=== PATIENT | female | born 1935 | race Caucasian/White ===

== ENCOUNTER 2017-01-11 18:06 | Emergency (ER) | payer OTHER, MEDICARE ==
--- NOTE | 2017-01-11 18:57 | ED CLINICAL REPORT ---
Clinical Report - Physicians/Mid Levels [facility] [address] [place] [address] 01/11/2017 18:08 Patient: SANA GERMAN *This is a preliminary document and is subject to change Time Seen: 18:24; initial patient contact. Abhijeet Partida Dr.
--- NOTE | 2017-01-11 18:57 | ED ORDER SUMMARY ---
..... Patient: SANA GERMAN OrderSheet [facility] VisitID: [id number] [address] [address] 81y, F Registration Date/Time: 01/11/2017 ORDER SHEET Weight: 65.7 kg (stated) Allergies: Benadryl GENERAL ORDERS: MEDICATION ORDERS: Prednisone PO 40 mg (NOW) (18:38 01/11/2017 Chase Mustafa) (18:54 Isaiah RTangelaNTangela) IV FLUIDS: ORDER SHEET NOTES: This document has not been locked and should not be saved in the medical record.
--- NOTE | 2017-01-11 18:57 | ED CLINICAL REPORT ---
Clinical Report - Physicians/Mid Levels [facility] [address] [place] [address] 01/11/2017 18:08 Patient: SANA GERMAN *This is a preliminary document and is subject to change Time Seen: 18:24; initial patient contact. Abhijeet Partida Dr.
--- NOTE | 2017-01-11 18:57 | ED NURSING NOTES ---
Clinical Report - Nurses [facility] [address] [place] [address] 01/11/2017 18:08 Patient: SANA GERMAN TRIAGE Triage time 18:23. Acuity: LEVEL 4. Chief Complaint: POSSIBLE ALLERGIC REACTION, SKIN RASH, ITCHING and HIVES. --18:29 Chely Rubio R.N. 18:23 01/11/17. BP: 108/57. HR: 78. RR: 20. O2 saturation: 97%. Temp: 97.8 F. Pain level now: 01/31. --18:29 Chely Rubio R.N. Weight: 65.7 kg stated. Height/Length: 65.5 inches Per Patient. BMI: 23.8. --18:27 Chely Rubio R.N. Medications Levaquin (almost finished). --18:25 Chely Rubio R.N. Coumadin?. --18:25 Chely Rubio R.N. BP med doesn't know name. --18:26 Chely Rubio R.N. Allergies Benadryl. --18:24 Chely Rubio R.N. History Arrived by private vehicle. Historian: patient. Accompanied by family. Primary physician (Elisabet Fry in [place]). ( Pt lives with family in [place], is here visiting relatives here in [place]). This started today. Onset. (this morning). PAST MEDICAL HX: Immunizations: up-to-date. SOCIAL HX: Never smoker. No drug use. FUNCTIONAL ASSESSMENT: Functional assessment: no impairments noted. LEARNING NEEDS ASSESSMENT: The learning needs assessment revealed no barriers. --18:29 Chely Rubio R.N. PROBLEMS: Neck Pain. --18:26 Chely Rubio R.N. Hypertension. --18:28 Chely Rubio R.N. ADDITIONAL SURGERIES: Hysterectomy. --18:26 Chely Rubio R.N. Interventions ID band on patient. To room. --18:29 Chely Rubio R.N. PHYSICAL ASSESSMENT 18:29 01/11/17. Patient gowned. GENERAL / NEURO / PSYCH: Alert. Appears anxious. Oriented X 4. --18:29 Chely Rubio R.N. NURSING PROGRESS NOTES 18:29 01/11/17. Patient identifiers checked. Call light placed in reach. Bed placed in lowest position. Patient ready for evaluation- chart flagged. --18:29 Chely Rubio R.N. 18:54 01/11/2017 Prednisone PO 40 mg given. Allergies verified and confirmed 5 rights. --18:54 Kian Rivas R.N. DISPOSITION / DISCHARGE Departure time: 1914. The patient was discharged by the physician. She was discharged home and accompanied by family. She left the Emergency Department ambulatory and via private vehicle. Family member driving. ( Pt ambulated with assistance on discharge, family verbalized understanding of discharge instructions and follow up care.). --19:18 Kian Rivas R.N. 19:16 01/11/17. BP: 108/87. HR: 76. RR: 18. O2 saturation: 98%. Temp: 98.2 F. Pain level now 0/10. --19:18 Kian Rivas R.N. Locked/Released at 01/21/2017 9:00 by Stephanie Ortega R.N.
--- NOTE | 2017-01-11 18:57 | ED NURSING NOTES ---
Clinical Report - Nurses [facility] [address] [place] [address] 01/11/2017 18:08 Patient: SANA GERMAN TRIAGE Triage time 18:23. Acuity: LEVEL 4. Chief Complaint: POSSIBLE ALLERGIC REACTION, SKIN RASH, ITCHING and HIVES. --18:29 Chely Rubio R.N. 18:23 01/11/17. BP: 108/57. HR: 78. RR: 20. O2 saturation: 97%. Temp: 97.8 F. Pain level now: 01/31. --18:29 Chely Rubio R.N. Weight: 65.7 kg stated. Height/Length: 65.5 inches Per Patient. BMI: 23.8. --18:27 Chely Rubio R.N. Medications Levaquin (almost finished). --18:25 Chely Rubio R.N. Coumadin?. --18:25 Chely Rubio R.N. BP med doesn't know name. --18:26 Chely Rubio R.N. Allergies Benadryl. --18:24 Chely Rubio R.N. History Arrived by private vehicle. Historian: patient. Accompanied by family. Primary physician (Elisabet Fry in [place]). ( Pt lives with family in [place], is here visiting relatives here in [place]). This started today. Onset. (this morning). PAST MEDICAL HX: Immunizations: up-to-date. SOCIAL HX: Never smoker. No drug use. FUNCTIONAL ASSESSMENT: Functional assessment: no impairments noted. LEARNING NEEDS ASSESSMENT: The learning needs assessment revealed no barriers. --18:29 Chely Rubio R.N. PROBLEMS: Neck Pain. --18:26 Chely Rubio R.N. Hypertension. --18:28 Chely Rubio R.N. ADDITIONAL SURGERIES: Hysterectomy. --18:26 Chely Rubio R.N. Interventions ID band on patient. To room. --18:29 Chely Rubio R.N. PHYSICAL ASSESSMENT 18:29 01/11/17. Patient gowned. GENERAL / NEURO / PSYCH: Alert. Appears anxious. Oriented X 4. --18:29 Chely Rubio R.N. NURSING PROGRESS NOTES 18:29 01/11/17. Patient identifiers checked. Call light placed in reach. Bed placed in lowest position. Patient ready for evaluation- chart flagged. --18:29 Chely Rubio R.N. 18:54 01/11/2017 Prednisone PO 40 mg given. Allergies verified and confirmed 5 rights. --18:54 Kian Rivas R.N. DISPOSITION / DISCHARGE Departure time: 1914. The patient was discharged by the physician. She was discharged home and accompanied by family. She left the Emergency Department ambulatory and via private vehicle. Family member driving. ( Pt ambulated with assistance on discharge, family verbalized understanding of discharge instructions and follow up care.). --19:18 Kian Rivas R.N. 19:16 01/11/17. BP: 108/87. HR: 76. RR: 18. O2 saturation: 98%. Temp: 98.2 F. Pain level now 0/10. --19:18 Kian Rivas R.N. Locked/Released at 01/21/2017 9:00 by Stephanie Ortega R.N.
--- NOTE | 2017-01-11 18:57 | ED ORDER SUMMARY ---
..... Patient: SANA GERMAN OrderSheet [facility] VisitID: [id number] [address] [place] [address] 81y, F Registration Date/Time: 01/11/2017 ORDER SHEET Weight: 65.7 kg (stated) Allergies: Benadryl GENERAL ORDERS: MEDICATION ORDERS: Prednisone PO 40 mg (NOW) (18:38 01/11/2017 Cahse Mustafa) (18:54 Isaiah RTangelaNTangela) IV FLUIDS: ORDER SHEET NOTES: This document has not been locked and should not be saved in the medical record.
--- NOTE | 2017-01-21 09:00 | ED DISCHARGE INSTRUCTIONS ---
Patient: SAAN GERMAN General Instructions [facility] VisitID: [id number] [place] [address] 81y, F Registration Date/Time: 01/11/2017 Generalized drug rash due to oral macrolide. INSTRUCTIONS Your Current Medications: STOP TAKING THE FOLLOWING MEDICATIONS: Levaquin (almost finished)*. CONTINUE TAKING THE FOLLOWING MEDICATIONS: BP med doesn't know name*. Coumadin?*. Prescription Medications: Medrol Dosepak: take according to package directions. Dispense one (1) dosepak. No refill. Substitution is permissible. Follow-up: Follow up with your doctor in about two days. Call for an appointment. Blood pressure screening was not performed during this visit because the patient has an active diagnosis of hypertension. ADDITIONAL INFORMATION Drug Reaction: Allergic You are having an allergic reaction to a drug you have taken. This causes an itchy rash and sometimes swelling of various parts of the body. It may also cause trouble swallowing or breathing. The rash may take a few hours or up to two weeks to go away. In the future, remember to tell your doctor about your allergy to this drug so that drugs of this type won't be used again. Home Care: 1) Throw the drug away and do not take it again. The next reaction may be much worse. 2) Avoid tight clothing and anything that heats up your skin (hot showers/baths, direct sunlight) since heat will make itching worse. 3) An ice pack (ice cubes in a plastic bag, wrapped in a towel) will relieve local areas of intense itching and redness. Lanacaine cream or Solarcaine spray (or other product containing "benzocaine") will reduce the itching. 4) Avoid scratching which may worsen the reaction, damage your skin and lead to an infection. 5) Oral Benadryl (diphenhydramine) is an antihistamine available at drug and grocery stores. Unless a prescription antihistamine was given, Benadryl may be used to reduce itching if large areas of the skin are involved. Use lower doses during the daytime and higher doses at bedtime since the drug may make you sleepy. [NOTE: Do not use Benadryl if you have glaucoma or if you are a man with trouble urinating due to an enlarged prostate.] Claritin (loratadine) is an antihistamine that causes less drowsiness and is a good alternative for daytime use. Follow Up with your doctor or this facility in the next two days if your symptoms do not continue to improve. Get Prompt Medical Attention if any of the following occur: -- Wheezing, shortness of breath or difficulty swallowing -- Increased swelling in the face, eyelids, mouth, lips, tongue or throat -- Dizziness, weakness or fainting Methylprednisolone Oral tablet What is this medicine? METHYLPREDNISOLONE (meth ill pred NISS oh lone) is a corticosteroid. It is commonly used to treat inflammation of the skin, joints, lungs, and other organs. Common conditions treated include asthma, allergies, and arthritis. It is also used for other conditions, such as blood disorders and diseases of the adrenal glands. How should I use this medicine? Take this medicine by mouth with a drink of water. Follow the directions on the prescription label. Take it with food or milk to avoid stomach upset. If you are taking this medicine once a day, take it in the morning. Do not take more medicine than you are told to take. Do not suddenly stop taking your medicine because you may develop a severe reaction. Your doctor will tell you how much medicine to take. If your doctor wants you to stop the medicine, the dose may be slowly lowered over time to avoid any side effects. Talk to your geophysical laboratory chief regarding the use of this medicine in children. Special care may be needed. What side effects may I notice from receiving this medicine? Side effects that you should report to your doctor or health body care manager as soon as possible: allergic reactions like skin rash, itching or hives, swelling of the face, lips, or tongue eye pain, decreased or blurred vision, or bulging eyes fever, sore throat, sneezing, cough, or other signs of infection, wounds that will not heal increased thirst mental depression, mood swings, mistaken feelings of self importance or of being mistreated pain in hips, back, ribs, arms, shoulders, or legs swelling of the ankles, feet, hands trouble passing urine or change in the amount of urine Side effects that usually do not require medical attention (report to your doctor or health body care manager if they continue or are bothersome): confusion, excitement, restlessness headache nausea, vomiting skin problems, acne, thin and shiny skin weight gain What may interact with this medicine? Do not take this medicine with any of the following medications: mifepristone This medicine may also interact with the following medications: tacrolimus vaccines warfarin What if I miss a dose? If you miss a dose, take it as soon as you can. If it is almost time for your next dose, talk to your doctor or health body care manager. You may need to miss a dose or take an extra dose. Do not take double or extra doses without advice. Where should I keep my medicine? Keep out of the reach of children. Store at room temperature between 20 and 25 degrees C (68 and 77 degrees F). Throw away any unused medicine after the expiration date. What should I tell my health care provider before I take this medicine? They need to know if you have any of these conditions: Simin's syndrome diabetes glaucoma heart problems or disease high blood pressure infection such as herpes, measles, tuberculosis, or chickenpox kidney disease liver disease mental problems myasthenia gravis osteoporosis seizures stomach ulcer or intestine disease including colitis and diverticulitis thyroid problem an unusual or allergic reaction to lactose, methylprednisolone, other medicines, foods, dyes, or preservatives or trying to get breast-feeding What should I watch for while using this medicine? Visit your doctor or health body care manager for regular checks on your progress. If you are taking this medicine for a long time, carry an identification card with your name and address, the type and dose of your medicine, and your doctor's name and address. The medicine may increase your risk of getting an infection. Stay away from people who are sick. Tell your doctor or health body care manager if you are around anyone with measles or chickenpox. If you are going to have surgery, tell your doctor or health body care manager that you have taken this medicine within the last twelve months. Ask your doctor or health body care manager about your diet. You may need to lower the amount of salt you eat. The medicine can increase your blood sugar. If you are a diabetic check with your doctor if you need help adjusting the dose of your diabetic medicine. You have been given the following additional information: Allergic Reaction, Drug Methylprednisolone Oral tablet (Electronically signed by Abhijeet Partida Dr. 01/11/2017 21:38)
--- NOTE | 2017-01-21 09:00 | ED MED RECONCILIATION SUMMARY ---
Patient: SANA GERMAN Medication Reconciliation Report [facility] VisitID: [id number] [address] [place] [address] 81y, F Registration Date/Time: 01/11/2017 Weight: 65.7 kg Height/Length: 60 in. BMI: 23.8 ALLERGIES: Benadryl The patient's Home Medications are listed below: STOP TAKING THE FOLLOWING MEDICATIONS: Levaquin (almost finished) CONTINUE TAKING THE FOLLOWING MEDICATIONS: BP med doesn't know name Coumadin? The source(s) of the original Home Medication information: Not obtained. The following Medications were given to the patient in the Emergency Department: Prednisone [PO] PO 40 mg, administered: 01/11/2017 6:54:00 PM The following Medications were prescribed to the patient: Medrol Dosepak: take according to package directions. Dispense one (1) dosepak. No refill. Substitution is permissible. -- Abhijeet Partida Dr.
--- NOTE | 2017-01-21 09:00 | ED MAR SUMMARY ---
..... Medication Administration Record [facility] [address] [place] [address] Patient: SANA GERMAN Visit ID: [id number] 81y, F Weight: 65.7 kg Height/Length: 65.5 in BMI: 23.8 ALLERGIES: Benadryl Given 18:54 01/11/2017 Kian Rivas RShira Medication Administered: PREDNISONE [PO], Dose: 40 mg PO. Medication Ordered: Prednisone PO 40 mg (NOW).
--- NOTE | 2017-01-21 09:00 | ED DISCHARGE INSTRUCTIONS ---
Patient: SANA GERMAN General Instructions [facility] VisitID: [id number] [place] [address] 81y, F Registration Date/Time: 01/11/2017 Generalized drug rash due to oral macrolide. INSTRUCTIONS Your Current Medications: STOP TAKING THE FOLLOWING MEDICATIONS: Levaquin (almost finished)*. CONTINUE TAKING THE FOLLOWING MEDICATIONS: BP med doesn't know name*. Coumadin?*. Prescription Medications: Medrol Dosepak: take according to package directions. Dispense one (1) dosepak. No refill. Substitution is permissible. Follow-up: Follow up with your doctor in about two days. Call for an appointment. Blood pressure screening was not performed during this visit because the patient has an active diagnosis of hypertension. ADDITIONAL INFORMATION Drug Reaction: Allergic You are having an allergic reaction to a drug you have taken. This causes an itchy rash and sometimes swelling of various parts of the body. It may also cause trouble swallowing or breathing. The rash may take a few hours or up to two weeks to go away. In the future, remember to tell your doctor about your allergy to this drug so that drugs of this type won't be used again. Home Care: 1) Throw the drug away and do not take it again. The next reaction may be much worse. 2) Avoid tight clothing and anything that heats up your skin (hot showers/baths, direct sunlight) since heat will make itching worse. 3) An ice pack (ice cubes in a plastic bag, wrapped in a towel) will relieve local areas of intense itching and redness. Lanacaine cream or Solarcaine spray (or other product containing "benzocaine") will reduce the itching. 4) Avoid scratching which may worsen the reaction, damage your skin and lead to an infection. 5) Oral Benadryl (diphenhydramine) is an antihistamine available at drug and grocery stores. Unless a prescription antihistamine was given, Benadryl may be used to reduce itching if large areas of the skin are involved. Use lower doses during the daytime and higher doses at bedtime since the drug may make you sleepy. [NOTE: Do not use Benadryl if you have glaucoma or if you are a man with trouble urinating due to an enlarged prostate.] Claritin (loratadine) is an antihistamine that causes less drowsiness and is a good alternative for daytime use. Follow Up with your doctor or this facility in the next two days if your symptoms do not continue to improve. Get Prompt Medical Attention if any of the following occur: -- Wheezing, shortness of breath or difficulty swallowing -- Increased swelling in the face, eyelids, mouth, lips, tongue or throat -- Dizziness, weakness or fainting Methylprednisolone Oral tablet What is this medicine? METHYLPREDNISOLONE (meth ill pred NISS oh lone) is a corticosteroid. It is commonly used to treat inflammation of the skin, joints, lungs, and other organs. Common conditions treated include asthma, allergies, and arthritis. It is also used for other conditions, such as blood disorders and diseases of the adrenal glands. How should I use this medicine? Take this medicine by mouth with a drink of water. Follow the directions on the prescription label. Take it with food or milk to avoid stomach upset. If you are taking this medicine once a day, take it in the morning. Do not take more medicine than you are told to take. Do not suddenly stop taking your medicine because you may develop a severe reaction. Your doctor will tell you how much medicine to take. If your doctor wants you to stop the medicine, the dose may be slowly lowered over time to avoid any side effects. Talk to your boat puller regarding the use of this medicine in children. Special care may be needed. What side effects may I notice from receiving this medicine? Side effects that you should report to your doctor or health director of career resources as soon as possible: allergic reactions like skin rash, itching or hives, swelling of the face, lips, or tongue eye pain, decreased or blurred vision, or bulging eyes fever, sore throat, sneezing, cough, or other signs of infection, wounds that will not heal increased thirst mental depression, mood swings, mistaken feelings of self importance or of being mistreated pain in hips, back, ribs, arms, shoulders, or legs swelling of the ankles, feet, hands trouble passing urine or change in the amount of urine Side effects that usually do not require medical attention (report to your doctor or health director of career resources if they continue or are bothersome): confusion, excitement, restlessness headache nausea, vomiting skin problems, acne, thin and shiny skin weight gain What may interact with this medicine? Do not take this medicine with any of the following medications: mifepristone This medicine may also interact with the following medications: tacrolimus vaccines warfarin What if I miss a dose? If you miss a dose, take it as soon as you can. If it is almost time for your next dose, talk to your doctor or health director of career resources. You may need to miss a dose or take an extra dose. Do not take double or extra doses without advice. Where should I keep my medicine? Keep out of the reach of children. Store at room temperature between 20 and 25 degrees C (68 and 77 degrees F). Throw away any unused medicine after the expiration date. What should I tell my health care provider before I take this medicine? They need to know if you have any of these conditions: Simin's syndrome diabetes glaucoma heart problems or disease high blood pressure infection such as herpes, measles, tuberculosis, or chickenpox kidney disease liver disease mental problems myasthenia gravis osteoporosis seizures stomach ulcer or intestine disease including colitis and diverticulitis thyroid problem an unusual or allergic reaction to lactose, methylprednisolone, other medicines, foods, dyes, or preservatives or trying to get breast-feeding What should I watch for while using this medicine? Visit your doctor or health director of career resources for regular checks on your progress. If you are taking this medicine for a long time, carry an identification card with your name and address, the type and dose of your medicine, and your doctor's name and address. The medicine may increase your risk of getting an infection. Stay away from people who are sick. Tell your doctor or health director of career resources if you are around anyone with measles or chickenpox. If you are going to have surgery, tell your doctor or health director of career resources that you have taken this medicine within the last twelve months. Ask your doctor or health director of career resources about your diet. You may need to lower the amount of salt you eat. The medicine can increase your blood sugar. If you are a diabetic check with your doctor if you need help adjusting the dose of your diabetic medicine. You have been given the following additional information: Allergic Reaction, Drug Methylprednisolone Oral tablet (Electronically signed by Abhijeet Partida Dr. 01/11/2017 21:38)
--- NOTE | 2017-01-21 09:00 | ED MAR SUMMARY ---
..... Medication Administration Record [facility] [address] [place] [address] Patient: SANA GERMAN Visit ID: [id number] 81y, F Weight: 65.7 kg Height/Length: 65.5 in BMI: 23.8 ALLERGIES: Benadryl Given 18:54 01/11/2017 Kian Rivas RShira Medication Administered: PREDNISONE [PO], Dose: 40 mg PO. Medication Ordered: Prednisone PO 40 mg (NOW).
--- NOTE | 2017-01-21 09:00 | ED MED RECONCILIATION SUMMARY ---
Patient: SANA GERMAN Medication Reconciliation Report [facility] VisitID: [id number] [address] [place] [address] 81y, F Registration Date/Time: 01/11/2017 Weight: 65.7 kg Height/Length: 60 in. BMI: 23.8 ALLERGIES: Benadryl The patient's Home Medications are listed below: STOP TAKING THE FOLLOWING MEDICATIONS: Levaquin (almost finished) CONTINUE TAKING THE FOLLOWING MEDICATIONS: BP med doesn't know name Coumadin? The source(s) of the original Home Medication information: Not obtained. The following Medications were given to the patient in the Emergency Department: Prednisone [PO] PO 40 mg, administered: 01/11/2017 6:54:00 PM The following Medications were prescribed to the patient: Medrol Dosepak: take according to package directions. Dispense one (1) dosepak. No refill. Substitution is permissible. -- Abhijeet Partida Dr.
== END 2017-01-11 19:15 | disposition home or self-care (01) ==
LOC: ED SRH 18:06
DX: L27.0 Generalized skin eruption due to drugs and medicaments taken internally (principal); T36.3X5A Adverse effect of macrolides, initial encounter; I10 Essential (primary) hypertension